=== PATIENT | female | born 1995 | race African-American/Black ===

== ENCOUNTER 2017-02-01 00:48 | Inpatient (IN) | payer OTHER ==
[2017-02-01 01:22] LABS: ROM Internal QC QC Line Present
[2017-02-01] MEDS ORDERED: Nalbuphine* 20 MG/ML 1 ML VIAL IM ONE (06:11)
[2017-02-01] MEDS ORDERED: Promethazine INJ(RESTRICTED)* 25 MG/ML 1 ML VIAL IM ONE (06:11)
[2017-02-01] MEDS ORDERED: Promethazine INJ(RESTRICTED)* 25 MG/ML 1 ML VIAL ONE (06:25)
[2017-02-01] MEDS ORDERED: Nalbuphine* 20 MG/ML 1 ML VIAL ONE (06:25)
[2017-02-01] MEDS ORDERED: Lidocaine 2.5%/Prilocain 2.5%* 5 GM TUBE TOPICAL ONE (07:30)
[2017-02-01 09:47] LABS: Hematocrit 33 % (35-47); Hemoglobin 10.6 g/dl (12.0-16.0); Mean Corpuscular HGB Conc 32 g/dl (31-36); Mean Corpuscular Hemoglobin 26 pg (27-31); Mean Corpuscular Volume 81 fL (80-97); Mean Platelet Volume 9 um3 (7.4-10.4); Red Blood Count 4.04 10^6/ul (4.0-5.4); Red Cell Distribution Width 14 % (10.5-15); White Blood Count 17.4 10^3/ul (3.5-10.8)
[2017-02-01] MEDS ORDERED: OBEPIDURAL* 250 ML ONE (16:25)
[2017-02-01] MEDS ORDERED: Famotidine TAB* 20 MG PO PRN (17:25)
[2017-02-01] MEDS ORDERED: Phenylephrine IV* 40 MCG/ML 10 ML SYRINGE IV PUSH PRN (17:25)
[2017-02-01] MEDS ORDERED: Sodium Citrate/Citric Acid* 15 ML UDC PO PRN (17:25)
[2017-02-01] MEDS ORDERED: OBEPIDURAL* 250 ML EPIDURAL SCH (18:00)
[2017-02-01] MEDS ORDERED: Oxytocin in LR* 20 UNITS/1,000 ML BAG IVPB SCH (19:00)
[2017-02-02] MEDS ORDERED: Glycerin ADULT SUPP PR PRN (03:48)
[2017-02-02] MEDS ORDERED: Witch Hazel PAD* JAR TOPICAL PRN (03:48)
[2017-02-02] MEDS ORDERED: Dibucaine 1% 28.35 GM TUBE PR PRN (03:48)
[2017-02-02] MEDS ORDERED: Acetaminophen TAB* 325 MG PO PRN (03:48)
[2017-02-02] MEDS ORDERED: Simethicone CHEW TAB* 80 MG PO SCH (08:30)
[2017-02-02] MEDS: Ibuprofen TAB* 600 MG PO PRN ×3 (09:51→21:25)
[2017-02-02] MEDS: Docusate CAP* 100 MG PO SCH ×3 (09:52→21:25)
[2017-02-03] MEDS: Docusate CAP* 100 MG PO SCH ×3 (08:09→22:09)
[2017-02-03] MEDS: Ibuprofen TAB* 600 MG PO PRN ×3 (08:09→22:09)
[2017-02-03 08:14] LABS: Hematocrit 28 % (35-47); Hemoglobin 9.2 g/dl (12.0-16.0); Mean Corpuscular HGB Conc 33 g/dl (31-36); Mean Corpuscular Hemoglobin 26 pg (27-31); Mean Corpuscular Volume 80 fL (80-97); Mean Platelet Volume 9 um3 (7.4-10.4); Red Cell Distribution Width 14 % (10.5-15); White Blood Count 16.4 10^3/ul (3.5-10.8)
[2017-02-03] MEDS: Ferrous Gluconate TAB* 324 MG TAB PO SCH ×2 (09:42→22:09)
[2017-02-04 08:05] VITALS: BP 103/70
[2017-02-04] MEDS: Docusate CAP* 100 MG PO SCH (08:25)
[2017-02-04] MEDS: Ibuprofen TAB* 600 MG PO PRN (08:25)
[2017-02-04] MEDS: Ferrous Gluconate TAB* 324 MG TAB PO SCH (08:25)
--- NOTE | 2017-02-04 08:44 | PTEDU ---
Patient Name: OSWALD MILTON OSWALD MILTON selected video: Never Ever Shake a Baby to view on 02/04/2017 at 8:42:50 AM [id number]
== END 2017-02-04 11:21 | disposition home or self-care (01) | DRG 560 ==
LOC: MCHOBOUT 00:48 → MCHOB 01:34
PROVIDERS: ADMIT Midwife; ATTEND Midwife
PROC: 10E0XZZ Delivery of Products of Conception, External Approach (ICD-10-PCS; principal; 2017-02-02)
PROC: 4A1HXCZ Monitoring of Products of Conception, Cardiac Rate, External Approach (ICD-10-PCS; 2017-02-02)
PROC: 0HQ9XZZ Repair Perineum Skin, External Approach (ICD-10-PCS; 2017-02-02)
DX: O48.0 Post-term pregnancy (principal); O70.0 First degree perineal laceration during delivery; O87.4 Varicose veins of lower extremity in the puerperium; Z3A.40 40 weeks gestation of pregnancy; Z37.0 Single live birth; Z91.018 Allergy to other foods
CPT/HCPCS: 36415; 84112; 85025; 86850; 86900; 86901; A9270-GY; J2300; J2550

== ENCOUNTER 2017-03-16 10:06 | Emergency (ER) | payer OTHER ==
[2017-03-16 10:35] VITALS: BP 103/53
--- NOTE | 2017-03-16 11:01 | UC ---
Respiratory Complaint HPI - HPI Summary HPI Summary: 2 DAYS OF CONGESTION, COUGH, RHINITIS. SUBJECTIVE FEVER LAST NIGHT. NO N/V/D. - History of Current Complaint Chief Complaint: UCRespiratory Stated Complaint: RESP ISSUE FEVER Time Seen by Provider: 03/16/17 10:53 Hx Obtained From: Patient Hx Last Menstrual Period: 05/25/15 Onset/Duration: Gradual Onset, Lasting Days, Still Present Timing: Constant Severity Initially: Moderate Severity Currently: Moderate Pain Intensity: 0 Pain Scale Used: 0-10 Numeric Character: Cough: Nonproductive Aggravating Factors: Nothing Alleviating Factors: Nothing Associated Signs And Symptoms: Positive: Fever, Chills, URI, Nasal Congestion. Negative: Wheezing - Allergies/Home Medications Allergies/Adverse Reactions: Allergies Allergy/AdvReac Type Severity Reaction Status Date / Time Kiwi Extract Allergy Severe tongue Verified 03/16/17 10:31 swelling Home Medications: Home Medications [id number] [Nyquil Severe Cold/Flu 5-6.25-10-325 mg/15Ml] 03/16/17 [History] PMH/Surg Hx/FS Hx/Imm Hx Previously Healthy: Yes - Surgical History Surgical History: None - Family History Known Family History: Positive: Diabetes - Social History Alcohol Use: None Substance Use Type: None Smoking Status (MU): Never Smoked Tobacco - Immunization History Most Recent Influenza Vaccination: currently not flu season Most Recent Pneumonia Vaccination: not indicated Review of Systems Constitutional: Fever, Chills ENT: Nasal Discharge Respiratory: Cough Cardiovascular: Negative Gastrointestinal: Negative Genitourinary: Negative All Other Systems Reviewed And Are Negative: Yes Physical Exam Triage Information Reviewed: Yes Appearance: Well-Appearing, No Pain Distress, Well-Nourished Vital Signs: Initial Vital Signs Temp 98 F 03/16/17 10:31 Pulse 78 03/16/17 10:31 Resp 16 03/16/17 10:31 BP 103/53 03/16/17 10:31 Pulse Ox 100 03/16/17 10:31 Vital Signs Reviewed: Yes Eyes: Positive: Conjunctiva Clear ENT: Positive: Hearing grossly normal, Pharynx normal, TMs normal Neck: Positive: Supple, Nontender, No Lymphadenopathy Respiratory Exam: Normal Cardiovascular Exam: Normal Abdomen Description: Positive: Soft Musculoskeletal: Positive: No Edema Neurological: Positive: Alert Psychological: Positive: Age Appropriate Behavior Skin: Negative: rashes UC Diagnostic Evaluation - Laboratory O2 Sat by Pulse Oximetry: 100 Respiratory Course/Dx - Differential Dx/Diagnosis Provider Diagnoses: ACUTE URI Discharge - Discharge Plan Condition: Stable Disposition: HOME Patient Education Materials: Upper Respiratory Infection (ED) Referrals: Mara Khan CNM [Circulation Sales Representative] - If Needed Additional Instructions: ACUTE UPPER RESPIRATORY INFECTION The common cold is a benign self-limited syndrome representing a group of diseases caused by members of several families of viruses. It is the most frequent acute illness in the [place] and throughout the industrialized world. The term "common cold" refers to a mild upper respiratory viral infection involving, to variable degrees, nasal congestion and discharge ( rhinorrhea), sneezing, sore throat, cough, low-grade fever, headache, and malaise. Symptomatic therapy remains the mainstay of common cold treatment. In the absence of convincing evidence of a secondary bacterial infection, antibiotics are not effective in the treatment of the common cold and should not be prescribed. Be advised that the usual course and duration of illness is up to one and a half weeks for patients with a cold, but can last slightly longer; symptoms usually persist longer in smokers.
== END 2017-03-16 11:17 | disposition home or self-care (01) ==
LOC: UCEAST 10:06
DX: J06.9 Acute upper respiratory infection, unspecified (principal)
CPT/HCPCS: 99211; G0463

== ENCOUNTER 2019-03-05 13:52 | Emergency (ER) | payer SELFPAY ==
[2019-03-05 14:17] VITALS: BP 105/69
--- NOTE | 2019-03-05 15:04 | UC ---
Throat Pain/Nasal Ok HPI - HPI Summary HPI Summary: 23-year-old female presents with onset of sore throat and fatigue yesterday. Associated with subjective fever and chills. Denies ear pain, nasal congestion , dysphagia, cough, abdominal pain, nausea, or vomiting. - History of Current Complaint Chief Complaint: UCGeneralIllness Stated Complaint: FATIGUE/WEAK/CHILLS/ST Time Seen by Provider: 03/05/19 14:56 Hx Obtained From: Patient Hx Last Menstrual Period: 02/22/19 Pain Intensity: 7 - Allergies/Home Medications Allergies/Adverse Reactions: Allergies Allergy/AdvReac Type Severity Reaction Status Date / Time kiwi Allergy Swelling Verified 03/05/19 14:12 Home Medications: Home Medications NK [No Home Medications Reported] 03/05/19 [History Confirmed 03/05/19] PMH/Surg Hx/FS Hx/Imm Hx Previously Healthy: Yes - Denies significant PMH - Surgical History Surgical History: None - Family History Known Family History: Positive: Diabetes - Social History Occupation: Employed Full-time Lives: With Family Alcohol Use: None Substance Use Type: None Smoking Status (MU): Never Smoked Tobacco - Immunization History Most Recent Influenza Vaccination: currently not flu season Most Recent Pneumonia Vaccination: not indicated Review of Systems All Other Systems Reviewed And Are Negative: Yes Constitutional: Positive: Fever - subjective, Chills, Fatigue Skin: Negative: Rash Eyes: Negative: Drainage, Eye Redness ENT: Positive: Sore Throat Respiratory: Negative: Shortness Of Breath, Cough Cardiovascular: Positive: Negative Gastrointestinal: Positive: Negative Genitourinary: Positive: Negative Musculoskeletal: Positive: Negative Neurological: Positive: Negative Is Patient Immunocompromised?: No Physical Exam - Summary Physical Exam Summary: GENERAL APPEARANCE: Well developed, well nourished, alert and cooperative, and appears to be in no acute distress. EYES: Conjunctiva clear. No drainage. EARS: External auditory canals and tympanic membranes clear, hearing grossly intact. NOSE: No nasal discharge. THROAT: Pharyngeal erythema. 2+ tonsils without exudate or lesions. Uvula midline. NECK: Neck supple, non-tender without lymphadenopathy. CARDIAC: Normal S1 and S2. No S3, S4 or murmurs. Rhythm is regular. There is no peripheral edema, cyanosis or pallor. Extremities are warm and well perfused. Capillary refill is less than 2 seconds. Peripheral pulses intact. LUNGS: Clear to auscultation without rales, rhonchi, wheezing or diminished breath sounds. ABDOMEN: Positive bowel sounds. Soft, nondistended, nontender. No guarding or rebound. No masses or hepatosplenomegally. MUSKULOSKELETAL: ROM intact to all extremities. No joint erythema or tenderness. Normal muscular development. Normal gait. SKIN: Skin normal color, texture and turgor with no lesions or eruptions. Triage Information Reviewed: Yes Vital Signs: Initial Vital Signs Temp 98.4 F 03/05/19 14:13 Pulse 76 03/05/19 14:13 Resp 16 03/05/19 14:13 BP 105/69 03/05/19 14:13 Pulse Ox 100 03/05/19 14:13 Vital Signs Reviewed: Yes Throat Pain/Nasal Course/Dx - Course Course Of Treatment: 23-year-old female presents with onset of sore throat and fatigue yesterday. Associated with subjective fever and chills. Denies ear pain, nasal congestion , dysphagia, cough, abdominal pain, nausea, or vomiting. Afebrile. Vital signs stable. Patient had pharyngeal erythema, 2+ tonsils without exudate or lesions, no cervical lymphadenopathy, otherwise unremarkable exam. Rapid strep test was negative. Recommending symptomatic treatment for a viral pharyngitis. She is to return here or with her primary care provider in 5-7 days if symptoms are not improving. Anticipatory guidance and warning symptoms were reviewed with the patient. Verbalizes understanding and agrees with plan of care. - Differential Dx/Diagnosis Differential Diagnosis/HQI/PQRI: Mononucleosis, Pharyngitis, Tonsillitis, URI Provider Diagnosis: Acute viral pharyngitis Discharge - Sign-Out/Discharge Documenting (check all that apply): Patient Departure All imaging exams completed and their final reports reviewed: No Studies - Discharge Plan Condition: Stable Disposition: HOME Patient Education Materials: Pharyngitis (ED) Forms: *Work Release Referrals: No Primary Care Phys,NOPCP [Primary Care Provider] - Additional Instructions: Your rapid strep test in the clinic today was negative. Your symptoms are likely from a viral infection. Viral infections do not respond to antibiotics and are limited to the treatment of symptoms. Viral infections typically run their course in 7-10 days. Drink plenty of fluids to avoid dehydration especially if you are running any fever. Use salt water gargles several times a day. Take over the counter acetaminophen (Tylenol) or ibuprofen (Advil, Motrin) according to directions as needed for pain or fever. You may also use Chloraseptic spray or Cepacol lonzenges according to directions which contain a numbing medication and can provide some temporary relief from your sore throat. Return here or follow up with your primary care provider in 5-7 days if symptoms persist. Seek immediate medical attention in the emergency room if you have fever greater than 100.5 F despite taking acetaminophen or ibuprofen, are unable to swallow or develop drooling, are unable to open your mouth fully, are unable to eat or drink, have pain that is not relieved with over the counter pain medication, have any difficulty breathing, r have any worsening of symptoms. - Billing Disposition and Condition Condition: STABLE Disposition: Home
== END 2019-03-05 15:35 | disposition home or self-care (01) ==
LOC: UCEAST 13:52
DX: J02.8 Acute pharyngitis due to other specified organisms (principal)
CPT/HCPCS: 87651; 99211; G0463

== ENCOUNTER 2019-10-14 13:53 | Emergency (ER) | payer SELFPAY ==
[2019-10-14 15:18] VITALS: BP 102/69
--- NOTE | 2019-10-14 16:44 | UC ---
Respiratory Complaint HPI - HPI Summary HPI Summary: Patient is a 24-year-old female presenting with fianc and daughter for complaint of cough 1 week. Patient states illness began with fever for the first day but denies fever since. States cough is nonproductive. Denies shortness of breath and wheezing. Does note that occasionally her chest feels tight when she coughs. Denies chest pain. Notes mild nasal congestion. Denies sore throat. Denies chills and body aches. Taking OTC cough medications with little relief. Patient states she feels fatigued and that is what is concerning her most. Also states that her fianc and daughter recently tested positive for the flu. Patient denies concern for the flu today. - History of Current Complaint Chief Complaint: UCRespiratory Stated Complaint: COUGH Hx Obtained From: Patient Hx Last Menstrual Period: 09/27/19 Pain Intensity: 0 - Allergies/Home Medications Allergies/Adverse Reactions: Allergies Allergy/AdvReac Type Severity Reaction Status Date / Time kiwi Allergy Swelling Verified 10/14/19 15:18 Home Medications: Home Medications Albuterol HFA INHALER* [Ventolin HFA Inhaler*] 1 - 2 puff INH Q6H PRN #1 mdi 05/25 [Rx] PMH/Surg Hx/FS Hx/Imm Hx Previously Healthy: Yes - Surgical History Surgical History: None - Family History Known Family History: Positive: Diabetes - Social History Alcohol Use: None Substance Use Type: None Smoking Status (MU): Never Smoked Tobacco - Immunization History Most Recent Influenza Vaccination: currently not flu season Most Recent Pneumonia Vaccination: not indicated Review of Systems All Other Systems Reviewed And Are Negative: Yes Constitutional: Positive: Fatigue ENT: Positive: Sinus Congestion Respiratory: Positive: Cough. Negative: Shortness Of Breath Cardiovascular: Positive: Negative Gastrointestinal: Positive: Negative Musculoskeletal: Positive: Negative Neurological/Mental Status: Positive: Negative Physical Exam - Summary Physical Exam Summary: Vital Signs Reviewed: Yes A+Ox3, no distress, well-appearing Eyes: Conjunctiva Clear ENT: Hearing grossly normal, TM x 2 clear, moist, uvula midline, no exudate, no erythema Neck: Positive: Supple Respiratory: Positive: No respiratory distress, No accessory muscle use + CTA throughout no w/r Cardiovascular: RRR nl s1, s2 no m/r Musculoskeletal Exam: [place] x 4 without difficulty Neurological: Positive: Alert Psychological: Positive: age appropriate behavior Skin: Positive: no rash, no ecchymosis Vital Signs: Initial Vital Signs Temp 98.8 F 10/14/19 15:13 Pulse 68 10/14/19 15:13 Resp 16 10/14/19 15:13 BP 102/69 10/14/19 15:13 Pulse Ox 98 10/14/19 15:13 Respiratory Course/Dx - Course Course Of Treatment: Patient declined flu tests. I discussed likely viral bronchitis with patient and provided her with an inhaler for any shortness of breath or chest tightness. Instructed to continue with OTC decongestant and to maintain hydration. Instructed follow up with PCP or [facility] if symptoms persist or worsen. Patient was understanding and agreed with the treatment plan. - Differential Dx/Diagnosis Provider Diagnosis: Acute bronchitis, Viral URI Discharge ED - Sign-Out/Discharge Documenting (check all that apply): Patient Departure All imaging exams completed and their final reports reviewed: No Studies - Discharge Plan Condition: Stable Disposition: HOME Prescriptions: Albuterol HFA INHALER* [Ventolin HFA Inhaler*] 1 - 2 puff INH Q6H PRN #1 mdi PRN Reason: Sob/Wheezing Patient Education Materials: Acute Bronchitis (ED) Referrals: [facility] [Outside] - If Needed Additional Instructions: As discussed, your symptoms are most likely caused by a virus and should resolve without treatment. You may take an over the counter decongestant to help alleviate mucous production. Use the inhaler as needed for shortness of breath. Get plenty of rest and increase your fluid intake. A humidifier at night may also help alleviate symptoms. Follow up with your primary care provider of the [facility] below if your symptoms worsen or do not improve within 7 days. - Billing Disposition and Condition Condition: STABLE Disposition: Home
== END 2019-10-14 17:54 | disposition home or self-care (01) ==
LOC: UCEAST 13:53
DX: J20.9 Acute bronchitis, unspecified (principal); J06.9 Acute upper respiratory infection, unspecified; Z91.018 Allergy to other foods
CPT/HCPCS: 99212; G0463

== ENCOUNTER 2020-08-21 07:13 | Inpatient (IN) ==
[2020-08-21] MEDS ORDERED: Buffered Lidocaine 1% SYRIN 1 ml INTRADERM ONE (08:37)
[2020-08-21] MEDS ORDERED: Lactated Ringers 1000 ml BAG 1,000 ML IV ONE ×2 (09:06→16:03)
[2020-08-21 09:39] LABS: ABS Lymphocytes 1.8 10^3/ul (1.0-4.8); ABS Monocytes 0.9 10^3/ul (0-0.8); ABS Neutrophils 7.4 10^3/ul (1.5-7.7); Eosinophil % 0.4 %; Hematocrit 32 % (35-47); Hemoglobin 10.6 g/dL (12.0-16.0); Lymphocyte % 17.5 %; Mean Corpuscular HGB Conc 34 g/dL (31-36); Mean Corpuscular Hemoglobin 26 pg (27-31); Mean Corpuscular Volume 78 fL (80-97); Mean Platelet Volume 8.8 fL (7.4-10.4); Platelet Count 254 10^3/uL (150-450); Red Blood Count 4.03 10^6 /uL (3.70-4.87); Red Cell Distribution Width 14 % (10-15); White Blood Count 10.1 10^3/uL (3.5-10.8)
[2020-08-21] MEDS ORDERED: Lactated Ringers 1000 ml BAG 1,000 ML IV SCH ×2 (10:00→17:00)
[2020-08-21 10:14] LABS: Urine Benzodiazepine Screen None Detected (None Detect); Urine Cannabinoids Screen None Detected (None Detect); Urine Opiates Screen None Detected (None Detect)
[2020-08-21] MEDS ORDERED: OBEPIDURAL 250 ML EPIDURAL ONE (10:20)
[2020-08-21] MEDS ORDERED: Oxytocin in LR 20 UNITS/1,000 ML BAG IVPB SCH (14:00)
[2020-08-21] MEDS ORDERED: fentaNYL 100 mcg/2 ml 50 MCG/ML VIAL ONE (15:10)
[2020-08-21] MEDS ORDERED: Sodium Citrate/Citric Acid LIQ 15 ML UDC PO PRN (16:03)
[2020-08-21] MEDS ORDERED: Phenylephrine 40 mcg/mL 10mL (400mcg) SYRINGE IV PUSH PRN (16:03)
[2020-08-21] MEDS ORDERED: EPHEDrine (Pressors) 50 MG/ML VIAL IV PUSH PRN ×2 (16:03)
[2020-08-21] MEDS ORDERED: Lidocaine 1% MPF 5 ML VIAL ONE (16:14)
[2020-08-21] MEDS ORDERED: OBEPIDURAL 250 ML EPIDURAL SCH (17:00)
[2020-08-21] MEDS: Phenylephrine 40 mcg/mL 10mL (400mcg) SYRINGE IV PUSH PRN ×2 (21:40→21:45)
[2020-08-21] MEDS ORDERED: fentaNYL 100 mcg/2 ml 50 MCG/ML VIAL IV SLOW PU PRN (22:47)
[2020-08-21] MEDS ORDERED: diPHENhydraMINE IV 50 MG/ML 1 ml VIAL (BENADRYL) IV ONE (22:48)
[2020-08-22] MEDS ORDERED: Dibucaine 1% OINT 28.35 GM TUBE PR PRN (01:17)
[2020-08-22] MEDS ORDERED: Witch Hazel PAD JAR TOPICAL PRN (01:17)
[2020-08-22] MEDS ORDERED: Lactated Ringers 1000 ml BAG 1,000 ML IV SCH (02:00)
[2020-08-22] MEDS ORDERED: Oxytocin in LR 20 UNITS/1,000 ML BAG IVPB SCH (02:00)
[2020-08-23 07:43] LABS: ABS Basophils 0.1 10^3/ul (0-0.2); ABS Eosinophils 0.1 10^3/ul (0-0.6); ABS Lymphocytes 2.9 10^3/ul (1.0-4.8); ABS Neutrophils 7.6 10^3/ul (1.5-7.7); Eosinophil % 1.2 %; Hematocrit 30 % (35-47); Hemoglobin 9.5 g/dL (12.0-16.0); Lymphocyte % 24.9 %; Mean Corpuscular HGB Conc 32 g/dL (31-36); Mean Corpuscular Hemoglobin 25 pg (27-31); Mean Corpuscular Volume 80 fL (80-97); Mean Platelet Volume 8.9 fL (7.4-10.4); Platelet Count 229 10^3/uL (150-450); Red Blood Count 3.74 10^6 /uL (3.70-4.87); Red Cell Distribution Width 15 % (10-15); White Blood Count 11.6 10^3/uL (3.5-10.8)
[2020-08-23 07:58] VITALS: BP 107/75
== END 2020-08-23 12:09 | disposition home or self-care (01) | DRG 560 ==
LOC: MCHOBOUT 07:13 → MCHOB 09:00
PROVIDERS: ADMIT Midwife; ATTEND Midwife